=== PATIENT | female | born 1960 | race Caucasian/White ===

== ENCOUNTER 2017-08-13 10:34 | Emergency (ER) | payer BC ==
[~2017-08-13] VITALS: Ht 154.9 cm; Wt 108.9 kg
[2017-08-13 10:58] LABS: HEMATOCRIT 47.4 % (36.0-46.0); MCH 27.5 PG (29.0-34.0); MCHC 34.2 G/DL (30.0-36.0); MCV 80.5 FL (83-99); MEAN PLAT.VOLUME 9.8 uM^3 (9.5-12.4); PLATELET COUNT 294 K/uL (156-360); RBC DIS.WIDTH-SD 37.4 % (39-53); RED BLOOD COUNT 5.89 M/uL (3.80-5.20); WHITE BLOOD COUNT 18.9 K/uL (4.1-10.2)
[2017-08-13 11:08] LABS: CHLORIDE 109 mEq/L (99-109); SODIUM 138 mEq/L (136-147)
[2017-08-13 11:10] LABS: GLUCOSE 187 mg/dL (70-99)
[2017-08-13 11:11] LABS: ANION GAP 13 MEQ/L (2-14)
[2017-08-13 11:15] LABS: GFR ESTIMATE (CALCULATED) 45 mL/min/; UREA NITROGEN (BUN) 14 mg/dL (9-23)
[2017-08-13 11:45] LABS: TOTAL BILIRUBIN 0.5 mg/dL (0.0-1.0)
[2017-08-13 11:46] LABS: ALKALINE PHOSPHATASE 87 IU/L (3-129)
[2017-08-13 11:49] LABS: DIRECT BILIRUBIN 0.2 mg/dL (0.0-0.3)
[2017-08-13 11:50] LABS: LIPASE 41 U/L (1.0-51.0)
[2017-08-13 14:44] LABS: ADD MIUA? YES; BILIRUBIN NEGATIVE; BLOOD MODERATE; COLOR YELLOW ((YELLOW)); GLUCOSE (STRIP) NEGATIVE; KETONES NEGATIVE; LEUKOCYTES SMALL; NITRITE NEGATIVE; PROTEIN (STRIP) 30; SPECIFIC GRAVITY 1.013 (1.000-1.030); UROBILINOGEN 0.2 MG/DL (0.2-1.0)
[2017-08-13 14:57] LABS: BACTERIA NONE SEEN /HPF; EPITHELIAL CELLS RARE /HPF; MUCUS TRACE /LPF; UCUL ADDED? YES
[2017-08-13] MEDS ORDERED: FLOMAX0.4 MG PO (15:12)
[2017-08-13] MEDS ORDERED: PERCOCET 5/31 TABLET PO (15:12)
[2017-08-13] MEDS ORDERED: CIPRO500 MG PO (15:33)
[2017-08-13 15:55] VITALS: BP 146/84
== END 2017-08-13 15:56 | disposition home or self-care (01) ==
LOC: EME 10:34
DX: N13.2 Hydronephrosis with renal and ureteral calculous obstruction (principal); K57.30 Diverticulosis of large intestine without perforation or abscess without bleeding; K76.0 Fatty (change of) liver, not elsewhere classified; Z87.442 Personal history of urinary calculi; Z90.710 Acquired absence of both cervix and uterus; Z90.722 Acquired absence of ovaries, bilateral
CPT/HCPCS: 74176; 80048; 80076; 81003; 83690; 85027; 87077; 87086; 87186; J0780; J1200; J1885; J7030